=== PATIENT | female | born 1995 | race African-American/Black ===

== ENCOUNTER 2020-12-29 17:28 | Emergency (ER) | payer OTHER ==
[~2020-12-29] VITALS: Ht 170.2 cm; Wt 77.2 kg
--- NOTE | 2020-12-29 18:13 | PHYS DOC ---
General Adult EDM: Chief Complaint: VAGINAL BLEEDING HPI: HPI: Patient is a 25 year old here with report of lower abdominal cramping. Earlier today, she experienced one episode of mild vaginal spotting. She had a positive test 2 to 3 days ago. Her last menstrual period was sometime in November i.e., last month. She denies any vomiting but reports some mild nausea. She has had a few episodes of diarrhea. No focal abdominal pain. No fevers or chills. No anorexia. No dizziness. She reports no continued or active vaginal bleeding at this time. No heavy bleeding or passing clots or tissue. This is her first . No history of previous STI, PID, cervicitis. No prior history of ectopic or any history of miscarriage. Review of Systems: Review of Systems: Constitutional: Denies fever or chills. [] Eyes: Denies change in visual acuity. [] HENT: Denies nasal congestion or sore throat. [] Respiratory: Denies cough or shortness of breath. [] Cardiovascular: Denies chest pain or edema. [] GI: Reports pelvic pain and mild vaginal spotting. Denies heavy vaginal bleeding. Denies focal pelvic pain. : Denies any urinary symptoms. Musculoskeletal: Denies back pain or joint pain. [] Integument: Denies rash. [] Neurologic: Denies headache, focal weakness or sensory changes. [] Endocrine: Denies polyuria or polydipsia. [] Lymphatic: Denies swollen glands. [] Psychiatric: Denies depression or anxiety. [] Heart Score: C/O Chest Pain: No Risk Factors: Risk Factors: DM, Current or recent (<one month) smoker, HTN, HLP, family histo ry of CAD, obesity. Risk Scores: Score 0 - 3: 2.5% MACE over next 6 weeks - Discharge Home Score 4 - 6: 20.3% MACE over next 6 weeks - Admit for Clinical Observation Score 7 - 10: 72.7% MACE over next 6 weeks - Early Invasive Strategies Physical Exam: PE: Constitutional: Well developed, well nourished, no acute distress, non-toxic appearance. [] HENT: Normocephalic, atraumatic, mucus membranes are moist. Eyes: PERRLA, EOMI, conjunctiva normal, no discharge. [] Neck: Trachea midline. Cardiovascular:Heart rate regular rhythm, +2 radial and posterior tibial pulses bilaterally Lungs & Thorax: Bilateral breath sounds clear to auscultation [] Abdomen: Bowel sounds normal, soft, no tenderness, no masses, no pulsatile masses, no CVA tenderness : No external vulvar lesions. No vaginal bleeding. Scant white discharge. Cervix is clear and non-erythematous. Skin: Warm, dry, no erythema, no rash. [] Back: No tenderness, no CVA tenderness. [] Extremities: No tenderness, no cyanosis, no clubbing, ROM intact, no edema. [] Neurologic: Alert and oriented X 3, normal motor function, normal sensory function, no focal deficits noted. [] Psychologic: She is very pleasant and cooperative. Affect is normal. [] EKG: EKG: [] Radiology/Procedures: Radiology/Procedures: IMAGING REPORT Signed PATIENT: DENISE MOYER SACCOUNT: [id number] : 1995 LOCATION: ER AGE: 25 SEX: F EXAM STATUS: REG ER ORD. PHYSICIAN: POLO PRATHER DO REASON: , bleeding, pain PROCEDURE: OB < 14 WKS US OB <14 WKS +TV DATE: 12/29/2020 7:31 PM INDICATION: , bleeding, pain. LMP 11/20/2020 COMPARISON: None. TECHNIQUE: Transvaginal ultrasonography of the pelvis was performed. Color Doppler and duplex were utilized as appropriate. FINDINGS: The uterus measures 7.6 x 5.2 x 4.1 cm. There is small yolk sac present. Gestational sac is normal in morphology. No perigestational fluid. No pole is visualized. Gestational sac measurement of 1.8 cm corresponds with estimated ultrasound gestational age of 6 weeks and 5 days, which would correspond to JOSE of 08/19/2021. There is no free pelvic fluid. The right ovary measures 3.7 x 3.3 x 2.0 cm. The left ovary measures 2.6 x 2.8 x 1.1 cm. No evidence of ovarian torsion. There is normal blood flow to both ovaries by color Doppler with arterial and venous waveforms detected. IMPRESSION: Gestational sac and yolk sac visualized, with measurements corresponding to 6 weeks 5 days gestation. No pole is seen. Correlate with hCG and recommend short-term follow-up ultrasound Electronically signed by: Samantha Ray MD (12/29/2020 9:48 PM) [facility] DICTATED and SIGNED BY: SAMANTHA RAY MD DATE: 12/29/20 [id number] 0 Course & Med Decision Making: Course & Med Decision Making Pertinent Labs and Imaging studies reviewed. (See chart for details) The patient declined any pain medicine here. She has a benign, nonsurgical abdominal exam. It took several hours to obtain the formal radiology read for her OB ultrasound. I did apologize for her wait time. Ultimately, ultrasound does demonstrate presence of IUP, though no pole or heart tones are noted. This may be related to early gestation. She has a scheduled first appointment at on January 31. I strongly encouraged her to keep this appointment. I told her to return immediately for any worsening symptoms, return of any bleeding, focal or more severe pain, uncontrolled vomiting, dehydration, or any other concerns she may have. I recommend pelvic rest. She does have findings of bacterial vaginosis. She will be prescribed oral antibiotics for this. She is comfortable with the plan for discharge home. Strict return precautions are given. She verbalized understanding of all instructions. Eleazar Disclaimer: Eleazar Disclaimer: This electronic medical record was generated, in whole or in part, using a voice recognition dictation system. Departure Departure Impression: Primary Impression: Abdominal pain in Qualified Codes: O26.891 - Other specified related conditions, first trimester; R10.9 - Unspecified abdominal pain Additional Impression: Bacterial vaginosis in Disposition: HOME / SELF CARE / HOMELESS Condition: GOOD Patient Instructions: Abdominal Pain During , Bacterial Vaginosis Additional Instructions: Your ultrasound today shows that you do have a in the uterus. It is still too early to see a baby or a heartbeat, but this is normal this early in . You will need a repeat ultrasound when you follow-up with an OB doctor in January. Return to the ER immediately for severe pain, uncontrolled vomiting, dehydration, severe heavy vaginal bleeding, fever 100.4 or higher or any other concerns. Stay well-hydrated. Eat a bland diet. Take the medications as directed for your bacterial infection. Keep your appointment with your OB doctor at on January 31, as scheduled Scripts Clindamycin Hcl (CLINDAMYCIN HCL) 300 Mg Capsule 1 CAP PO BID for 7 Days, #14 CAP Prov: POLO PRATHER DO 12/29/20 POLO PRATHER DO Dec 29, 2020 18:13
[2020-12-29 18:34] LABS: BASO % 0 % (0-3); EOS # 0.3 x10^3/uL (0.0-0.7); EOS % 4 % (0-3); HEMATOCRIT 39.5 % (36.0-47.0); HEMOGLOBIN 13.4 g/dL (12.0-15.5); LYMPH % 26 % (24-48); MEAN CORPUSCULAR HEMOGLOBIN 31 pg (25-35); MEAN CORPUSCULAR HGB CONC 34 g/dL (31-37); MEAN CORPUSCULAR VOLUME 92 fL (79-100); MONO # 0.6 x10^3/uL (0.0-1.1); MONO % 8 % (0-9); NEUT # 4.7 x10^3/uL (1.8-7.7); NEUT % 62 % (31-73); PLATELET COUNT 270 x10^3/uL (140-400); RED CELL DISTRIBUTION WIDTH 13.3 % (11.5-14.5); WHITE BLOOD COUNT 7.6 x10^3/uL (4.0-11.0)
[2020-12-29 18:42] LABS: CALCIUM 8.4 mg/dL (8.5-10.1); POTASSIUM 3.4 mmol/L (3.5-5.1)
[2020-12-29 19:15] LABS: BILIRUBIN,URINE NEGATIVE (NEG); CLARITY,URINE CLEAR; COLOR,URINE YELLOW; NITRITE,URINE NEGATIVE (NEG); PROTEIN,URINE NEGATIVE (NEG-TRACE); UROBILINOGEN,URINE 0.2 mg/dL (0.2 mg/dL)
[2020-12-29 19:22] LABS: BACTERIA,URINE FEW /HPF (0-FEW); RBC,URINE 0 /HPF (0-2); WBC,URINE OCC /HPF (0-4)
--- NOTE | 2020-12-29 21:51 | RAD ---
US OB <14 WKS +TV DATE: 12/29/2020 7:31 PM INDICATION: , bleeding, pain. LMP 11/20/2020 COMPARISON: None. TECHNIQUE: Transvaginal ultrasonography of the pelvis was performed. Color Doppler and duplex were ut ilized as appropriate. FINDINGS: The uterus measures 7.6 x 5.2 x 4.1 cm. There is small yolk sac present. Gestational sac is normal in morphology. No perigestational fluid. N o pole is visualized. Gestational sac measurement of 1.8 cm corresponds with estimated ultrasound gestational age of 6 week s and 5 days, which would correspond to JOSE of 08/19/2021. There is no free pelvic fluid. The right ovary measures 3.7 x 3.3 x 2.0 cm. The left ovary measures 2.6 x 2.8 x 1.1 cm. No evidence of ovarian torsion. There is normal blood flow to both ovaries by color Doppler with arterial and jose ous waveforms detected. IMPRESSION: Gestational sac and yolk sac visualized, with measurements corresponding to 6 weeks 5 days gestation. No pole is seen. Correlate with hCG and recommend short-term follow-up ultrasound Electronically signed by: Amilcar Perez MD (12/29/2020 9:48 PM) [facility]
[2020-12-29] MEDS ORDERED: CLIN-94 PO (21:59)
[2020-12-29 22:00] VITALS: BP 123/76
[2021-01-02 14:11] LABS: GC PROBE Negative (Negative)
== END 2020-12-29 22:00 | disposition home or self-care (01) ==
LOC: ER 17:28
DX: O26.891 Other specified pregnancy related conditions, first trimester (principal); R10.30 Lower abdominal pain, unspecified; O26.91 Pregnancy related conditions, unspecified, first trimester; O23.591 Infection of other part of genital tract in pregnancy, first trimester; B96.89 Other specified bacterial agents as the cause of diseases classified elsewhere; Z3A.01 Less than 8 weeks gestation of pregnancy
CPT/HCPCS: 36415; 76801; 80048; 81001; 81025; 84702; 85025; 86850; 86900; 86901; 87491; 87591; 99284; Q0111